=== PATIENT | male | born 1980 | race Caucasian/White ===

== ENCOUNTER 2025-03-28 16:32 | Emergency (ER) | payer OTHER, SELFPAY ==
[2025-03-28 17:07] VITALS: BP 139/80; PULSE 67; RESP 18; TEMP 36.9; O2SAT 98; BMI 28.1
--- NOTE | 2025-03-28 17:11 | EKG_ITS ---
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
--- NOTE | 2025-03-28 17:11 | DI.RAD.S_ITS ---
PROCEDURE: XR CHEST 1V INDICATIONS: Chest Pain TECHNIQUE: One view of the chest was acquired. COMPARISON: None. FINDINGS AND IMPRESSION: No airspace consolidation or pleural effusion on this single view study. Normal heart size. Degenerative osseous findings. Left shoulder postsurgical changes partially seen. Dictated by: Jose Harris M.D. on 03/28/2025 at 18:20 Approved by: Jose Harris M.D. on 03/28/2025 at 18:21
--- NOTE | 2025-03-28 17:14 | ED.CHESTPAIN ---
HPI - Chest Pain General Chief Complaint: Chest Pain Stated Complaint: chest painx wks , elevated HR, numb arms, today Time Seen by Provider: 03/28/25 17:14 Source: patient Mode of arrival: Ambulatory History of Present Illness HPI narrative: 44-year-old gentleman who initially noted transient episodes of stabbing left-sided chest pain starting about 3 weeks ago. This morning awoke and the stabbing left-sided chest pain has been consistent. He did not think that it was reproducible but with further palpation is clearly is. 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 No shortness a breath no diaphoresis. 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 He does not remember any specific incident 3 weeks ago seemed to have caused this. He notes that his father had a heart attack in his early 40s. Today he also noticed that his heart rate was in the 113 range which is quite unusual, typically his baseline heart rate is in the mid 50s to low 60s. Related Data Allergies Allergy/AdvReac Type Severity Reaction Status Date / Time nabumetone (From Relafen) Allergy throat Verified 03/28/25 17:06 swelling Review of Systems Review of Systems Narrative: Pertinent positive and negative findings as per HPI Patient History Social History Smoking Status: Never smoker Smoking Status: Never smoker Exam Initial Vital Signs Initial Vital Signs: Vital Signs Temperature 98.5 F 03/28/25 17:07 Pulse Rate 67 03/28/25 17:07 Respiratory Rate 18 03/28/25 17:07 Blood Pressure 139/80 03/28/25 17:07 Pulse Oximetry 98 03/28/25 17:07 Oxygen Delivery Method Room Air 03/28/25 17:07 General: Healthy appearing, in no acute distress. Able to give a complete and coherent history. Well-nourished well-developed HEENT: Moist mucous membranes, normal sclera with reactive pupils, auscultation, no wheezing no rales no rhonchi. Full and symmetrical air movement Cardiac: Regular rate and rhythm no murmurs Chest: Reproducible tenderness left mid axillary line just above the pectoralis muscle. Skin: Warm and dry, no rashes Neurologic: Grossly neurologically intact with no obvious asymmetries or abnormalities Extremities: No trauma, well perfused, pain is not reproduced with flexion or contraction of the pectoralis muscle Psych: Cooperative, appropriate insight and affect Course Orders Ordered: ED Orders 03/28/25 17:11 XR chest 1V Stat EKG-12 Lead Stat 03/28/25 17:16 Complete Blood Count AUTO DIFF Stat Comprehensive Metabolic Panel Stat D Dimer Stat Lipase Stat Magnesium Stat NT-proBNP (BNP-Adult 18+) Stat PTT Partial Thromboplastin Omar Stat Prothrombin Time INR Stat Troponin & CK Cardiac Panel Stat 03/28/25 22:24 Trop I [Troponin I] Stat Discontinued Medications Dexamethasone (Dexamethasone 10 Mg/Ml Vial) 10 mg IV NOW ONE Stop: 03/28/25 17:21 Last Admin: 03/28/25 17:24 Dose: 10 mg Documented By: NADIR Vital Signs Vital signs: Vital Signs - 8 hr 03/28/25 17:07 03/28/25 23:54 Temperature 98.5 F Pulse Rate 67 56 L Respiratory Rate 18 17 Blood Pressure 139/80 144/65 H Pulse Oximetry 98 98 Oxygen Delivery Method Room Air Room Air MDM - Chest Pain Lab Data 03/28/25 17:16 03/28/25 17:16 Labs: Lab Results 03/28/25 03/28/25 Range/Units 17:16 22:24 WBC 5.7 (4.5-11.0) X10^3/uL RBC 5.37 (4.5-5.9) X10^6/uL Hgb 15.3 (13.5-17.5) g/dL Hct 44.9 (41-53) % MCV 83.7 (80-100) fL MCH 28.5 (26-34) PG MCHC 34.0 (30-36) % RDW 13.1 (11.6-14.8) % Plt Count 236 (150-400) X10^3/uL Neut % (Auto) 56.8 (50-75) % Lymph % (Auto) 30.8 (25-40) % Mccreary % (Auto) 8.4 (3-14) % Eos % (Auto) 3.0 (2-4) % Baso % (Auto) 1.0 (0-2) % Neut # (Auto) 3200 (9762-7011) /uL Lymph # (Auto) 1800 (0097-4677) /uL Mccreary # (Auto) 500 (0-900) /uL Eos # (Auto) 200 (0-450) /uL Baso # (Auto) 100 (0-100) /uL PT 11.5 (9.4-12.5) SECONDS INR 1.0 (0.9-1.3) APTT 28 (25.1-36.5) SECONDS D-Dimer 230 (<500) ng/ml Sodium 141 (137-145) mmol/L Potassium 4.0 (3.4-5.1) mmol/L Chloride 106 (98-107) mmol/L Carbon Dioxide 28 (22-32) mmol/L BUN 14 (9-20) mg/dL Creatinine 1.23 (0.66-1.25) mg/dL Estimated GFR > 60 (>60) mL/min BUN/Creatinine Ratio 11.4 (6-22) Glucose 100 H (70-99) mg/dL Calcium 9.1 (8.4-10.2) mg/dL Magnesium 1.9 (1.6-2.3) mg/dL Total Bilirubin 1.1 (0.2-1.3) mg/dL AST 46 (17-59) IU/L ALT 42 (<50) IU/L Alkaline Phosphatase 54 (38-126) U/L Total Creatine Kinase 377 H (55-170) U/L Troponin I 0.012 < 0.012 (0.01-0.034) ng/mL NT-Pro-B Natriuret Pep < 20 (<125) pg/mL Total Protein 7.1 (6.3-8.2) g/dL Albumin 4.4 (3.5-5.0) g/dL Globulin 2.7 (1.7-4.1) g/dL Albumin/Globulin Ratio 1.6 (1.0-2.8) Lipase 362 H (23-300) U/L MDM Narrative Medical decision making narrative: CC: Left-sided chest pain intermittent for the last 3 weeks and consistent over the last 12 hours Complicating co-morbidities: Father did have myocardial infarction early in life Data collected from: patient Differential considered: Acute coronary syndrome, musculoskeletal chest pain, pneumothorax, neoplastic process, pulmonary embolism is considered however with no tachycardia or tachypnea is felt to be less likely Exam documented above, pertinent findings include: Exam is unremarkable, no lower extremity edema, reproducible chest pain with palpation over the anterior left chest wall Lab Test results independently reviewed as above. Pertinent findings: 1st and 2nd troponins are both undetectable Chemistries are reassuring CBC shows no signs of infection Independently reviewed EKG: EKG shows sinus rhythm at a rate of 60 with no acute ischemic changes Imaging studies independently reviewed: Unremarkable chest x-ray Treatments: IV dexamethasone, patient develops a rash with nonsteroidals Discussion: Patient had significant improvement with the dexamethasone. Reviewed findings and labs reassurance was given. Discussed use of ibuprofen and Tylenol. He states that he occasionally gets hives but does occasionally use ibuprofen and has no issues whatsoever. He was not interested in a brief course of steroids. There was no indication for additional workup or hospitalization and he is safely discharge HEART score = 1 Discharge Plan Departure Patient Disposition: Home Clinical Impression: Atypical chest pain Instructions: DI for Atypical Chest Pain Activity Restrictions/Additional Instructions: Thank you for coming in today Fortunately this pain that you have experienced does not seem to be related to your heart, lining around your heart(pericarditis), lung problems, pneumonia, collapsed lungs. There is no sign of infection You did have some improvement with a dose of dexamethasone, a steroid for inflammation treatment I believe that this is musculoskeletal pain. Taking it easy over the next couple of days we will be appropriate. Using 400 mg of ibuprofen (2 [id number] pills) and 1 Tylenol every 6 hours can be very helpful in controlling pain. If you find that you are getting worse or develop any new symptoms, please feel free to return to the emergency department for further evaluation. Referrals: Darci Bran MD [Primary Care Provider, [facility]] Stand Alone Forms: Patient Portal/API
[2025-03-28 17:28] LABS: Add Manual Diff / Slide Review NO; Hematocrit 44.9 % (41-53); Hemoglobin 15.3 g/dL (13.5-17.5); Lymphocytes Absolute Auto 1800 /uL (1100-4500); Mean Corpuscular HGB Conc 34.0 % (30-36); Mean Corpuscular Hemoglobin 28.5 PG (26-34); Mean Corpuscular Volume 83.7 fL (80-100); Platelet Count 236 X10^3/uL (150-400)
[2025-03-28 17:38] LABS: INR 1.0 (0.9-1.3); Prothrombin Time 11.5 SECONDS (9.4-12.5)
[2025-03-28 17:40] LABS: PTT Partial Thromboplastin Tim 28 SECONDS (25.1-36.5)
[2025-03-28 17:43] LABS: Alanine Aminotransferase 42 IU/L (<50); Albumin 4.4 g/dL (3.5-5.0); Albumin Globulin Ratio 1.6 (1.0-2.8); Alkaline Phosphatase 54 U/L (38-126); Blood Urea Nitrogen 14 mg/dL (9-20); Calcium 9.1 mg/dL (8.4-10.2); Carbon Dioxide 28 mmol/L (22-32); Chloride 106 mmol/L (98-107); Creatine Kinase 377 U/L (55-170); Estimated Glomerular Filt Rate > 60 mL/min (>60); Globulin 2.7 g/dL (1.7-4.1); Glucose 100 mg/dL (70-99); HEMOLYSIS < 15 (0-50); Lipase 362 U/L (23-300); Magnesium 1.9 mg/dL (1.6-2.3); Potassium 4.0 mmol/L (3.4-5.1); Sodium 141 mmol/L (137-145); Total Protein 7.1 g/dL (6.3-8.2)
[2025-03-28 17:54] LABS: NT-proBNP (BNP-Adult 18+) < 20 pg/mL (<125); Troponin I 0.012 ng/mL (0.01-0.034)
[2025-03-28 22:56] LABS: Troponin I < 0.012 ng/mL (0.01-0.034)
[2025-03-28 23:54] VITALS: BP 144/65; PULSE 56; RESP 17; O2SAT 98
[2025-03-29 01:35] VITALS: BP 113/66; PULSE 58; RESP 14; O2SAT 97
== END 2025-03-29 01:32 | disposition home or self-care (01) ==
PROVIDERS: Emergency Provider Emergency Medicine; PCP Family Medicine
DX: R07.89 Other chest pain (principal); Z82.49 Family history of ischemic heart disease and other diseases of the circulatory system
CPT/HCPCS: 36415; 71045; 80053; 82550; 83690; 83735; 83880; 84484; 85025; 85379; 85610; 85730; 93005; 96374; 99284; J1100